=== PATIENT | female | born 1975 | race Caucasian/White ===

== ENCOUNTER 2020-08-14 10:04 | Emergency (ER) | payer OTHER | END 2020-08-14 10:53 | disposition home or self-care (01) | LOC: JVIRT 10:04 | DX: Z11.59 Encounter for screening for other viral diseases (principal) | CPT/HCPCS: C9803; Q3014-GT; U0003 ==

== ENCOUNTER 2020-10-04 11:23 | Emergency (ER) | payer OTHER | END 2020-10-04 12:54 | disposition home or self-care (01) | LOC: JVIRT 11:23 | DX: Z20.822 Contact with and (suspected) exposure to COVID-19 (principal) | CPT/HCPCS: G2012-GT ==